=== PATIENT | female | born 1960 | race Native Hawaiian/Other Pacific Islander ===

== ENCOUNTER 2024-04-26 11:05 | Emergency (ER) | payer OTHER ==
[~2024-04-26] VITALS: Ht 154.9 cm; Wt 97.7 kg
[2024-04-26] MEDS: HYDROcodone/acetaminophen 5mg/325mg tablet PO ONE (12:30)
[2024-04-26 12:33] VITALS: BP 134/78; PULSE 78; RESP 18; TEMP 97.7; O2SAT 98
[2024-04-26] MEDS ORDERED: HYDR-3965 PO (12:42)
== END 2024-04-26 12:41 | disposition home or self-care (01) ==
LOC: ER 11:05
DX: S92.355A Nondisplaced fracture of fifth metatarsal bone, left foot, initial encounter for closed fracture (principal); Z88.5 Allergy status to narcotic agent; Z88.1 Allergy status to other antibiotic agents; X50.1XXA Overexertion from prolonged static or awkward postures, initial encounter; Y93.01 Activity, walking, marching and hiking; Y92.89 Other specified places as the place of occurrence of the external cause; Y99.8 Other external cause status
CPT/HCPCS: 73630; 99283; L4360